=== PATIENT | male | born 1945 | race Caucasian/White ===

== ENCOUNTER 2018-11-07 19:45 | Emergency (ER) | payer MEDICARE ==
[2018-11-07] MEDS ORDERED: CLINDAMYCIN PHOS/D5W 900MG 900 MG/50 ML BAG IVPB ONE (20:11)
[2018-11-07] MEDS ORDERED: IBUPROFEN 600 MG TABLET PO ONE (20:11)
[2018-11-07] MEDS ORDERED: 0.9 % SODIUM CHLORIDE 1000ML 1,000 ML IV SCH (20:15)
--- NOTE | 2018-11-07 20:17 | Emergency Department Record ---
History of Present Illness - General Stated Complaint: SWELLING RT ARM Time Seen by Provider: 11/07/18 20:10 Source: Patient Mode of Arrival: Ambulatory Limitations: No limitations - History of Present Illness Initial Comments: 73 yo male presents to ED for evaluation of pain and redness to the right elbow region that began 2-3 days ago. Patient denies injury, reports "I think I may have an infection over my elbow". Patient denies fevers or chills, does report that he "just doesn't feel well". Patient denies pain with ROM of the right elbow, reports history of DM. MD Complaint: Injury to:: Right, Elbow Onset/Timin -: Days(s) Other Extremity Injury: Elbow: Right Other Injuries: None Handedness: Right Place: Home Improves With: Immobilization Worsens With: Other Associated Symptoms: Denies other symptoms - Related Data Home Medications Medication Instructions Recorded Confirmed Last Taken Metformin HCl 500 mg PO DAILY 11/07/18 11/07/18 Unknown Previous Rx's Medication Instructions Recorded Clindamycin HCl 300 mg PO QID #40 capsule 11/07/18 Allergies Allergy/AdvReac Type Severity Reaction Status Date / Time No Known Drug Intolerances Allergy Unknown unknown Verified 06/25/15 07:23 Review of Systems Constitutional: Denies: Chills, Fever, Malaise, Night sweats Eyes: Denies: Eye discharge, Eye pain ENT: Denies: Congestion, Ear pain, Epistaxis Respiratory: Denies: Cough, Dyspnea Cardiovascular: Denies: Chest pain, Dyspnea on exertion Endocrine: Denies: Fatigue, Heat or cold intolerance Gastrointestinal: Denies: Abdominal pain, Nausea, Vomiting Genitourinary: Denies: Incontinence, Retention Musculoskeletal: Denies: Arthralgia, Back pain Skin: Reports: Rash. Denies: Bruising, Change in color, Change in hair/nails Neurological: Denies: Abnormal gait, Confusion, Headache, Seizure Psychiatric: Denies: Anxiety Hematological/Lymphatic: Denies: Anemia, Blood Clots Past Medical History - SOCIAL HISTORY Smoking Status: Never smoker - RESPIRATORY Hx Respiratory Disorders: No - CARDIOVASCULAR Hx Cardio Disorders: No - NEURO Hx Neuro Disorders: No - GI Hx GI Disorders: No Hx of Polyps: Yes (COLON) - Hx Genitourinary Disorders: No Comment:: LOW TESTOSTERONE - ENDOCRINE Hx Endocrine Disorders: No - MUSCULOSKELETAL Hx Musculoskeletal Disorders: Yes Hx Arthritis: Yes Comment:: fx back; fx L collar bone - PSYCH Hx Psych Problems: Yes Hx Depression: Yes - HEMATOLOGY/ONCOLOGY Hx Hematology/Oncology Disorders: No Family Medical History Hx Cancer: Father, Brother/Sister Physical Exam - General General Appearance: Alert, Oriented x3, Cooperative, Mild distress Limitations: No limitations - Head Head exam: Atraumatic, Normocephalic, Normal inspection Head exam detail: negative: Abrasion, Contusion, Ellis's sign, General tenderness, Hematoma, Laceration - Eye Eye exam: Normal appearance. negative: Conjunctival injection, Periorbital swelling, Periorbital tenderness, Scleral icterus - ENT Ear exam: negative: Auricular hematoma, Auricular trauma Nasal Exam: negative: Active bleeding, Discharge, Dried blood, Foreign body Mouth exam: negative: Drooling, Laceration, Muffled voice, Tongue elevation - Neck Neck exam: Normal inspection. negative: Meningismus, Tenderness - Respiratory Respiratory exam: Normal lung sounds bilaterally. negative: Rales, Respiratory distress, Rhonchi, Stridor - Cardiovascular Cardiovascular Exam: Regular rate, Normal rhythm, Normal heart sounds - GI/Abdominal GI/Abdominal exam: Soft. negative: Rebound, Rigid, Tenderness - Rectal Rectal exam: Deferred - exam: Deferred - Extremities Extremities exam: Tenderness, Other (Mild TTP and erythema over the right elbow, no crepitation noted, no portal of entry for infection noted, no evidence for septic joint on examination.). negative: Calf tenderness, Pedal edema - Back Back exam: Denies: CVA tenderness (R), CVA tenderness (L) - Neurological Neurological exam: Alert, Normal gait, Oriented X3 - Psychiatric Psychiatric exam: Normal affect, Normal mood - Skin Skin exam: Erythema Distribution of rash: RUE Description of rash: Erythematous, Macular, Tenderness Course - Reevaluation(s) Reevaluation #1: 11/07/18 20:17 Examination appears c/w cellulitis of the right elbow, no crepitation noted, no evidence for septic joint is present on examination. Will obtain laboratory studies, administer IVFs and Clindamycin IV, and reassess . Reevaluation #2: 11/07/18 20:59 Laboratory studies were reviewed and appear grossly unremarkable for an acute process except for the following: CRP 4.14. ESR 18 Patient was updated on all results, will outline the area of cellulitis with instructions to return to ED for worsening of his symptoms or if symptoms fail to improve in 48 hours. Patient verbalizes understanding of all instructions, appears stable for stable for discharge at this time. Medical Decision Making - Lab Data Result diagrams: 11/07/18 20:32 11/07/18 20:32 Disposition Disposition: Discharge Clinical Impression: Cellulitis of right elbow Disposition: Home, Self-Care Condition: (2) Stable Instructions: Cellulitis (ED) Additional Instructions: Return to ED if your symptoms worsen or if you have any concerns. Clindamycin as directed. Follow-up with your family doctor in 1-3 days as directed. Prescriptions: Clindamycin HCl 300 mg PO QID #40 capsule Time of Disposition: 21:17 Quality - Quality Measures Quality Measures: N/A - Blood Pressure Screening Does Patient Have Any of the Following: No Blood Pressure Classification: Pre-Hypertensive BP Reading Systolic Measurement: 131 Diastolic Measurement: 89 Screening for High Blood Pressure: < Pre-Hypertensive BP, F/U Documented > [[id number]] Pre-Hypertensive Follow-up Interventions: Referral to alternative/primary care provider.
[2018-11-07 20:38] LABS: ABSOLUTE NEUTROPHIL COUNT 9.11; BASO % 0.1 % (0-6); EOS % 0.6 % (0-6); GRAN % 79.5 % (47-80); HEMATOCRIT 42.6 % (42.0-52.0); HEMOGLOBIN 14.3 gm/dl (14.0-18.0); MEAN CELL VOLUME 94.2 fl (81-97); MEAN CORPUSCULAR HEMOGLOBIN 31.6 pg (27-33); MEAN CORPUSCULAR HGB CONC 33.6 g/dl (32-36); MEAN PLATELET VOLUME 9.1 fl (7.4-10.4); MONO % 9.8 % (0-9); PLATELET COUNT 214 K/uL (130-400); RED BLOOD COUNT 4.52 M/uL (4.40-5.70); RED CELL DISTRIBUTION WIDTH 12.3 % (11.5-14.5); WHITE BLOOD COUNT W/O DIFF 11.5 K/uL (4.2-12.2)
[2018-11-07 20:46] LABS: BLOOD UREA NITROGEN 27 mg/dL (8-23); CREATININE 0.6 mg/dL (0.7-1.2); EST GLOMERULAR FILTRATION RATE > 60 mL/min; TOTAL PROTEIN 7.4 g/dL (6.6-8.7)
[2018-11-07 20:48] LABS: GLUCOSE,RANDOM 109 mg/dL (74-109)
[2018-11-07 20:51] LABS: ALB/GLOB RATIO 1.5 (1.1-1.8); ALBUMIN 4.4 g/dL (4.0-5.0); ALKALINE PHOSPHATASE 102 U/L (40-129); ALT/SGPT 24 U/L (<41); AST/SGOT 22 U/L (10.0-50.0); C-REACTIVE PROTEIN 4.14 mg/dL (<0.5)
[2018-11-07 21:13] LABS: ERYTHROCYTE SEDIMENTATION RATE 18 mm/hr (0-20)
[2018-11-07] MEDS ORDERED: CLINDAMYCIN IVPB ONE (21:32)
[2018-11-07] MEDS ORDERED: SODIUM CHLORIDE 0.9% IVPB ONE (21:32)
== END 2018-11-07 21:38 | disposition home or self-care (01) ==
LOC: ER 19:45
DX: L03.113 Cellulitis of right upper limb (principal)
CPT/HCPCS: 80053; 85025; 85651; 86140; 96365; 99284; J7030